=== PATIENT | female | born 1990 | race Caucasian/White ===

== ENCOUNTER 2017-04-17 17:03 | Emergency (ER) | payer OTHER ==
[2017-04-17 17:52] LABS: Urine Bacteria 1+ (Absent); Urine Bilirubin Negative (Negative); Urine Glucose Negative (Negative); Urine Nitrite Negative (Negative)
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
[2017-04-17 18:32] LABS: Hematocrit 39 % (35-47); Hemoglobin 12.9 g/dl (12.0-16.0); Mean Corpuscular HGB Conc 33 g/dl (31-36); Mean Corpuscular Hemoglobin 28 pg (27-31); Mean Corpuscular Volume 85 fL (80-97); Mean Platelet Volume 8 um3 (7.4-10.4); Red Blood Count 4.55 10^6/ul (4.0-5.4); Red Cell Distribution Width 14 % (10.5-15); White Blood Count 7.3 10^3/ul (3.5-10.8)
[2017-04-17 18:42] LABS: ALT 6 U/L (7-52); AST 14 U/L (13-39); Acetaminophen < 15 mcg/mL; Albumin 4.3 g/dL (3.2-5.2); Alcohol < 10 mg/dL (<10); Alkaline Phosphatase 77 U/L (34-104); Anion Gap 5 mmol/L (2-11); BUN/Creatinine Ratio 22.1 (8-20); Blood Urea Nitrogen 15 mg/dL (6-24); CO2 Carbon Dioxide 27 mmol/L (22-32); Calcium 9.4 mg/dL (8.6-10.3); Chloride 106 mmol/L (101-111); EGFR African American 132.5 (>60); Globulin 3.2 g/dL (2-4); Glucose 96 mg/dL (70-100); Salicylate < 2.50 mg/dL (<30); Sodium 138 mmol/L (133-145); Total Protein 7.5 g/dL (6.4-8.9)
[2017-04-17 18:45] LABS: Benzodiazepine Urine Screen None Detected (None Detect)
[2017-04-17 18:52] LABS: TSH (Thyroid Stimulating Horm) 2.79 mcIU/mL (0.34-5.60)
[2017-04-17] MEDS ORDERED: Acetaminophen TAB* 325 MG PO ONE (20:25)
[2017-04-18 00:31] VITALS: BP 125/68
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
--- NOTE | 2017-04-20 18:05 | PN ---
Progress Note - Progress Note Date of Service: 04/20/17 Note: Called patient and is having symptoms currently. Sent script for Macrobid 100mg bid x5 days.
== END 2017-04-18 00:31 ==
LOC: ED 17:03
DX: T14.91 Suicide attempt (principal)
CPT/HCPCS: 36415; 80053; 80307; 80320; 80329; 81003; 81015; 84443; 85025; 87077; 87086; 87186; 99281; A9270-GY; G0480